=== PATIENT | male | born 1955 | race Caucasian/White ===

== ENCOUNTER 2018-11-01 02:31 | Inpatient (IN) | payer MEDICARE, MEDICAID ==
[~2018-11-01] VITALS: Ht 167.6 cm; Wt 57.6 kg
[2018-11-01] MEDS ORDERED: FOLIC ACID 1 MG, THIAMINE HCL 100 MG, MVI, ADULT NO.1 10 ML in DEXTROSE 5% WATER 1,000 ML IV ONE ×4 (03:15)
[2018-11-01 03:43] LABS: BASOPHILS % 0.4 % (0.0-2.0); EOSINOPHILS % 0.3 % (0.0-5.0); HEMATOCRIT. 28.2 % (42.0-52.0); HEMOGLOBIN. 9.7 g/dL (14.0-18.0); LYMPHOCYTES % 14.1 % (20.0-50.0); MEAN CORPUSCULAR HEMOGLOBIN 34.8 pg (28.0-32.0); MEAN CORPUSCULAR VOLUME 100.8 fL (80.0-94.0); MEAN PLATELET VOLUME 8.4 fl (7.4-10.4); MONOCYTES % 13.3 % (2.0-8.0); NEUTROPHILS % 71.9 % (40.0-76.0); PLATELET 116 x1000/uL (130-400); RED BLOOD CELL COUNT 2.79 mill/uL (4.7-6.1); RED CELL DISTRIBUTION WIDTH 15.8 % (11.6-14.6)
[2018-11-01 03:44] LABS: CHLORIDE 85 mEq/L (98-107)
[2018-11-01 03:49] LABS: ETHANOL BLOOD < 10 mg/dL
[2018-11-01 04:04] LABS: INR 1.2; PARTIAL THROMBOPLASTIN TIME 23.9 sec (23.4-31.0); PROTHROMBIN TIME 11.9 sec (9.6-11.0)
[2018-11-01] MEDS: KCL 20MEQ/100ML PREMIX 100 ML IV SCH ×2 (04:53→06:15)
[2018-11-01 09:00] VITALS: BP_SYST 117; BP_DIAS 70; BP_DIAS 77
[2018-11-01] MEDS ORDERED: TRAMADOL 50MG TABLET PO PRN (10:15)
[2018-11-01] MEDS ORDERED: ZOLPIDEM TARTRATE 5MG TABLET PO PRN (10:15)
[2018-11-01] MEDS ORDERED: NA PHOS,M-B/NA PHOS,DI-BA ENEMA 118ML PR PRN (10:15)
[2018-11-01] MEDS ORDERED: CLONIDINE 0.1MG TABLET PO PRN (10:15)
[2018-11-01] MEDS ORDERED: LORAZEPAM 2MG/ML CPJ IV PRN (10:15)
[2018-11-01] MEDS ORDERED: ACETAMINOPHEN 325MG TABLET PO PRN (10:15)
[2018-11-01] MEDS ORDERED: POTASSIUM CHLORIDE 20MEQ/PACKET PO NR (10:15)
[2018-11-01] MEDS ORDERED: ONDANSETRON HCL 4MG/2ML INJ IV PRN (10:15)
[2018-11-01] MEDS ORDERED: MAGNESIUM/ALUMINUM HYDROXIDE/SIMETHICONE 30ML UDC PO PRN (10:15)
[2018-11-01] MEDS ORDERED: NITROGLYCERIN 0.4MG TABLET SL SL PRN (10:15)
[2018-11-01] MEDS ORDERED: IPRATROPIUM/ALBUTEROL 0.5-3(2.5)MG/3ML NEB INH PRN (10:15)
[2018-11-01] MEDS ORDERED: GUAIFENESIN 200MG/10ML SUGAR FREE UDC PO PRN (10:15)
[2018-11-01] MEDS ORDERED: DOCUSATE SODIUM 100MG CAPSULE PO PRN (10:15)
[2018-11-01 11:08] LABS: FOLIC ACID (FOLATE) SERUM 3.3 ng/mL (>5.38)
[2018-11-01 12:00] VITALS: BP 113/76
[2018-11-01] MEDS ORDERED: KCL 20MEQ/100ML PREMIX 100 ML IV NR (12:00)
[2018-11-01] MEDS: ENOXAPARIN 40MG/0.4ML SYR SUBCUT SCH (12:10)
[2018-11-01] MEDS ORDERED: MAGNESIUM 4 G PREMIX 100 ML IV SCH (13:00)
[2018-11-01 16:00] VITALS: BP 104/67
[2018-11-01 16:20] LABS: CREATINE KINASE 76 IU/L (39-308)
[2018-11-01 16:22] LABS: CREATINE KINASE MB FRACTION < 1.0 ng/mL (0.5-3.6)
[2018-11-01 20:00] VITALS: BP 114/65
[2018-11-01] MEDS: ASCORBIC ACID 500 MG TABLET PO SCH (20:41)
[2018-11-01] MEDS: FAMOTIDINE 20MG TABLET PO SCH (20:41)
[2018-11-02] VITALS: BP 102/52
[2018-11-02 00:24] LABS: CREATINE KINASE 72 IU/L (39-308); CREATINE KINASE MB FRACTION < 1.0 ng/mL (0.5-3.6)
[2018-11-02 04:00] VITALS: BP 109/72
[2018-11-02 06:51] LABS: BASOPHILS % 0.6 % (0.0-2.0); EOSINOPHILS % 0.7 % (0.0-5.0); HEMATOCRIT. 23.5 % (42.0-52.0); HEMOGLOBIN. 8.2 g/dL (14.0-18.0); LYMPHOCYTES % 30.3 % (20.0-50.0); MEAN CORPUSCULAR HEMOGLOBIN 34.8 pg (28.0-32.0); MEAN CORPUSCULAR VOLUME 99.4 fL (80.0-94.0); MEAN PLATELET VOLUME 8.7 fl (7.4-10.4); NEUTROPHILS % 58.4 % (40.0-76.0); PLATELET 84 x1000/uL (130-400); RED BLOOD CELL COUNT 2.37 mill/uL (4.7-6.1); RED CELL DISTRIBUTION WIDTH 15.5 % (11.6-14.6)
[2018-11-02 07:10] LABS: CHLORIDE 88 mEq/L (98-107)
[2018-11-02 08:00] VITALS: BP 93/63
[2018-11-02] MEDS: FAMOTIDINE 20MG TABLET PO SCH ×2 (09:28→21:29)
[2018-11-02] MEDS: FOLIC ACID 1MG TABLET PO SCH (09:28)
[2018-11-02] MEDS: MULTIVITAMINS,THER W-MINERALS TABLET PO SCH (09:28)
[2018-11-02] MEDS: THIAMINE HCL 100MG TABLET PO SCH (09:28)
[2018-11-02] MEDS: ASCORBIC ACID 500 MG TABLET PO SCH ×2 (09:28→21:29)
[2018-11-02] MEDS: ENOXAPARIN 40MG/0.4ML SYR SUBCUT SCH (11:00)
[2018-11-02 12:00] VITALS: BP 91/58
[2018-11-02] MEDS ORDERED: POTASSIUM CHLORIDE 20MEQ TABLET SR PO NR (14:00)
[2018-11-02 16:00] VITALS: BP 92/62
[2018-11-02 20:00] VITALS: BP 100/65
[2018-11-02] MEDS ORDERED: POTASSIUM CHLORIDE INJ 40 MEQ in DEXT 5% WATER 250 ML IV NR (20:00)
[2018-11-03] VITALS: BP 99/57
[2018-11-03 04:00] VITALS: BP 110/48
[2018-11-03 08:00] VITALS: BP 107/70
[2018-11-03] MEDS: FAMOTIDINE 20MG TABLET PO SCH ×2 (09:00→21:23)
[2018-11-03] MEDS: FOLIC ACID 1MG TABLET PO SCH (09:00)
[2018-11-03] MEDS: ASCORBIC ACID 500 MG TABLET PO SCH ×2 (09:00→21:23)
[2018-11-03] MEDS: MULTIVITAMINS,THER W-MINERALS TABLET PO SCH (09:00)
[2018-11-03] MEDS: THIAMINE HCL 100MG TABLET PO SCH (09:00)
[2018-11-03] MEDS: ENOXAPARIN 40MG/0.4ML SYR SUBCUT SCH (10:52)
[2018-11-03 12:00] VITALS: BP 108/72
[2018-11-03 16:00] VITALS: BP 105/67
[2018-11-03 20:00] VITALS: BP 92/57
[2018-11-04] VITALS: BP 105/63
[2018-11-04 04:00] VITALS: BP 110/70
[2018-11-04] MEDS: FOLIC ACID 1MG TABLET PO SCH (09:42)
[2018-11-04] MEDS: FAMOTIDINE 20MG TABLET PO SCH ×2 (09:42→22:08)
[2018-11-04] MEDS: THIAMINE HCL 100MG TABLET PO SCH (09:42)
[2018-11-04] MEDS: MULTIVITAMINS,THER W-MINERALS TABLET PO SCH (09:42)
[2018-11-04] MEDS: ASCORBIC ACID 500 MG TABLET PO SCH ×2 (09:42→22:08)
[2018-11-04] MEDS: ENOXAPARIN 40MG/0.4ML SYR SUBCUT SCH (10:03)
[2018-11-04 10:23] VITALS: BP 101/52
[2018-11-04 12:00] VITALS: BP 102/68
[2018-11-04 16:00] VITALS: BP 100/66
[2018-11-04 20:00] VITALS: BP 96/64
[2018-11-05] VITALS: BP 98/54
[2018-11-05 04:00] VITALS: BP 110/60
[2018-11-05 08:00] VITALS: BP 104/65
[2018-11-05] MEDS: FOLIC ACID 1MG TABLET PO SCH (09:08)
[2018-11-05] MEDS: FAMOTIDINE 20MG TABLET PO SCH ×2 (09:08→20:24)
[2018-11-05] MEDS: THIAMINE HCL 100MG TABLET PO SCH (09:08)
[2018-11-05] MEDS: MULTIVITAMINS,THER W-MINERALS TABLET PO SCH (09:08)
[2018-11-05] MEDS: ASCORBIC ACID 500 MG TABLET PO SCH ×2 (09:08→20:24)
[2018-11-05] MEDS: ENOXAPARIN 40MG/0.4ML SYR SUBCUT SCH (11:00)
[2018-11-05 12:00] VITALS: BP 141/93
[2018-11-05 16:00] VITALS: BP 111/68
[2018-11-05 20:00] VITALS: BP 109/75
[2018-11-06] VITALS (7 sets, daily range): BP systolic 99–138; BP diastolic 58–82
[2018-11-06 06:23] LABS: BASOPHILS % 0.6 % (0.0-2.0); EOSINOPHILS % 1.1 % (0.0-5.0); HEMATOCRIT. 22.8 % (42.0-52.0); HEMOGLOBIN. 7.8 g/dL (14.0-18.0); LYMPHOCYTES % 35.4 % (20.0-50.0); MEAN CORPUSCULAR HEMOGLOBIN 35.3 pg (28.0-32.0); MEAN CORPUSCULAR VOLUME 102.7 fL (80.0-94.0); MEAN PLATELET VOLUME 8.4 fl (7.4-10.4); MONOCYTES % 9.8 % (2.0-8.0); NEUTROPHILS % 53.1 % (40.0-76.0); PLATELET 120 x1000/uL (130-400); RED BLOOD CELL COUNT 2.22 mill/uL (4.7-6.1); RED CELL DISTRIBUTION WIDTH 16.5 % (11.6-14.6)
[2018-11-06] MEDS: ASCORBIC ACID 500 MG TABLET PO SCH ×2 (09:09→21:21)
[2018-11-06] MEDS: FOLIC ACID 1MG TABLET PO SCH (09:09)
[2018-11-06] MEDS: THIAMINE HCL 100MG TABLET PO SCH (09:09)
[2018-11-06] MEDS: MULTIVITAMINS,THER W-MINERALS TABLET PO SCH (09:09)
[2018-11-06] MEDS: FAMOTIDINE 20MG TABLET PO SCH ×2 (09:09→21:21)
[2018-11-06] MEDS: ENOXAPARIN 40MG/0.4ML SYR SUBCUT SCH (13:44)
[2018-11-06] MEDS ORDERED: BUPROPION HCL 150MG TABLET XL 24HR PO SCH (17:00)
== END 2018-11-06 22:47 | DRG 897 ==
LOC: EDBD 02:31 → ER 02:31 → 5WST 05:15 → EDBEDREQTM 05:19 → EDBEDREQ 05:19 → ENRESERV 07:41
PROVIDERS: ADMIT Internal Medicine; ATTEND Internal Medicine
DX: F10.239 Alcohol dependence with withdrawal, unspecified (principal); E87.1 Hypo-osmolality and hyponatremia; E44.0 Moderate protein-calorie malnutrition; D61.818 Other pancytopenia; R55 Syncope and collapse; E87.6 Hypokalemia; E83.42 Hypomagnesemia; F10.10 Alcohol abuse, uncomplicated; E83.51 Hypocalcemia; E53.8 Deficiency of other specified B group vitamins; K70.30 Alcoholic cirrhosis of liver without ascites; W18.39XA Other fall on same level, initial encounter; Z66 Do not resuscitate; Z68.20 Body mass index [BMI] 20.0-20.9, adult; Y93.89 Activity, other specified; Y92.89 Other specified places as the place of occurrence of the external cause; Y99.8 Other external cause status; E83.52 Hypercalcemia; D52.9 Folate deficiency anemia, unspecified
CPT/HCPCS: 36415; 71045; 76700; 80061; 80320; 82550; 82553; 82607; 82746; 82962; 83036; 83540; 83550; 83735; 83880; 84484; 93005; 93306; 97162; 97166; 97530; 99285; J1650; J3411; J3475; J3480; J3490; J7050; J7060; J7070; G0480

== ENCOUNTER 2018-12-04 14:12 | Emergency (ER) | payer MEDICARE, MEDICAID ==
[~2018-12-04] VITALS: Ht 167.6 cm; Wt 55.0 kg
[2018-12-04 16:15] LABS: CHLORIDE 104 mEq/L (98-107)
[2018-12-04 16:17] LABS: PARTIAL THROMBOPLASTIN TIME 29.3 sec (23.4-31.0); PROTHROMBIN TIME 10.7 sec (9.6-11.0)
[2018-12-04 16:27] LABS: HEMATOCRIT. 26.9 % (42.0-52.0); HEMOGLOBIN. 8.8 g/dL (14.0-18.0); MEAN CORPUSCULAR HEMOGLOBIN 30.9 pg (28.0-32.0); MEAN CORPUSCULAR VOLUME 94.3 fL (80.0-94.0); MEAN PLATELET VOLUME 8.1 fl (7.4-10.4); PLATELET 133 x1000/uL (130-400); RED BLOOD CELL COUNT 2.85 mill/uL (4.7-6.1); RED CELL DISTRIBUTION WIDTH 17.3 % (11.6-14.6)
[2018-12-04 16:46] LABS: PLATELET ESTIMATE NORMAL
[2018-12-04] MEDS ORDERED: POTASSIUM CHLORIDE 20MEQ TABLET SR PO ONE (17:45)
[2018-12-04 19:17] VITALS: BP 142/75
== END 2018-12-04 19:18 | disposition home or self-care (01) ==
LOC: ER 14:12
DX: D64.9 Anemia, unspecified (principal); I11.0 Hypertensive heart disease with heart failure; I50.9 Heart failure, unspecified; E87.6 Hypokalemia; F10.20 Alcohol dependence, uncomplicated; Y90.0 Blood alcohol level of less than 20 mg/100 ml
CPT/HCPCS: 36415; 71045; 83880; 84484; 86850; 86900; 93005; 99284